=== PATIENT | male | born 1960 | race Hispanic/Latino ===

== ENCOUNTER 2020-11-02 06:36 | Day surgery (SDC) | payer BC ==
[2020-10-26 10:08] LABS: Absolute Lymphocytes (CBC) 1.5 K/uL (0.7-4.9); Basophils % 1.3 % (0-1.3); Hematocrit 43.2 % (39.6-49.0); Lymphocytes % 20.9 % (15.3-44.8); MPV 8.9 fL (7.6-11.3); RBC Red Blood Cell Count 5.03 M/uL (4.33-5.43)
[2020-10-26 10:13] LABS: Protime INR 0.97
[2020-10-26 10:39] LABS: Potassium 4.2 mmol/L (3.5-5.1)
--- NOTE | 2020-10-26 12:18 | RAD REPORT ---
EXAM DESCRIPTION: RAD - Chest Pa And Lat (2 Views) - 10/26/2020 10:03 am CLINICAL HISTORY: PRE OP, pending knee surgery COMPARISON: None TECHNIQUE: Frontal and lateral views of the chest were obtained. FINDINGS: The lungs are clear. Heart size is normal and central vasculature is within normal limit s. No pleural effusion or pneumothorax seen. No acute bony finding noted. No aortic abnormality. Hardware is in place from left shoulder surgical procedure. IMPRESSION: No acute cardiopulmonary process.
--- NOTE | 2020-10-26 13:37 | EKG ---
Test Date: 2020-10-26 Test Time: 10:03:47 Twister Hand: CG MEASUREMENT RESULTS: Intervals: Rate: 57 IN: 156 QRSD: 76 QT: 398 QTc: 387 [place]: P: 76 IN: 156 QRS: -14 T: 184 INTERPRETIVE STATEMENTS: Sinus bradycardia T wave abnormality, consider anterolateral ischemia Abnormal ECG No previous ECG available for comparison Electronically Signed On 10-26-20 13:36:51 TRACTOR DISTRIBUTOR by Romain Fagan
--- OUTSIDE RECORDS SUMMARY | 2020-11-02 06:38 | XMS REPORT ---
:1960 Author Organization [facility] Address [address] , [address] [place] [address] Care Team Providers Name Role Phone Suman Skinner Unavailable [phone] PROBLEMS Type Condition ICD9-CM OVC47-UT Onset Condition SNOMED Code Notes Code Code Dates Status Problem Primary M17.11 Active [id number] osteoarthritis of right knee ALLERGIES No Known Allergies ENCOUNTERS from 1960 to 2020-09-12 Encounter Location Date Provider Diagnosis [facility] [address] Aug, Suman Skinner Prep atellar bursitis [facility] [address] t knee M70.41 [place] [address] IMMUNIZATIONS Vaccine Route Administration Date Status Betamethasone Sodium Phosphate Unknown Nov 22, 2018 A dministered LIDOCAINE HCL 10MG/ML Unknown Nov 22, 2018 Administer ed SOCIAL HISTORY Tobacco Use: Social History Observation Description Date Details (start date - stop date) Never Smoker Sex Assigned At : Social History Observation Description Sex Assigned At Unknown Alcohol Screen Question Answer Notes Did you have a drink containing alcohol in Yes the past year? Points 2 Interpretation Negative How often did you have a drink containing Two to four times a month (2 points) alcohol in the past year? Tobacco Use/Smoking Question Answer Notes Are you a never smoker Additional Findings: Tobacco Non-User Current non-smoker REASON FOR REFERRAL No Information VITAL SIGNS No information MEDICATIONS Medication SIG (Take, Route, Frequency, Duration) Start Date En d Date Status Meloxicam 7.5 MG 1 tablet Orally Once a day for 30 day(s) Active Ibuprofen 800 MG 1 tablet po prn pain Orally Three times a Active day for 60 PROCEDURES No Information RESULTS No Results REASON FOR VISIT MRI right knee MEDICAL (GENERAL) HISTORY Type Description Date Surgical History LT HAND 80/90's Surgical History RT SHOULDER-metal 1987 Goals Section No Information Health Concerns No Information MEDICAL EQUIPMENT No Information MENTAL STATUS No Information FUNCTIONAL STATUS No Information ASSESSMENTS Encounter Date Diagnosis Notes Aug, Prepatellar bursitis of right knee (ICD- 10 - M70.41) PLAN OF TREATMENT Medication Medication Name Sig Start Date Stop Date Meloxicam 7.5 MG 1 tablet Orally Once a day for 30 day(s) Treatment Notes Test Name Order Date MRI Knee Right Wo Cont 2020-09-12 Insurance Providers Payer Name Payer Payer Insured Name Patient Coverage Covera ge End Address Phone Relationship to Start Date Sandeep e Insured [employer] [phone] [place] and Nikita [id number] [address] [place] [phone]
--- OUTSIDE RECORDS SUMMARY | 2020-11-02 06:39 | XMS REPORT ---
:1960 Author Organization [facility] Address [address] [place] [address] Care Team Providers Name Role Phone Suman Skinner Unavailable [phone] PROBLEMS Type Condition ICD9-CM VQT02-ES Onset Condition SNOMED Code Notes Code Code Dates Status Problem Primary M17.11 Active [id number] osteoarthritis of right knee ALLERGIES No Known Allergies ENCOUNTERS from 1960 to 2020-09-20 Encounter Location Date Provider Diagnosis [facility] [address] Aug, [place] [address] IMMUNIZATIONS Vaccine Route Administration Date Status Betamethasone [...] Information RESULTS No Results REASON FOR VISIT mri results MEDICAL (GENERAL) HISTORY Type Description Date Surgical History LT HAND 80/90's Surgical History RT SHOULDER-metal 1987 Goals Section No Information Health Concerns No Information MEDICAL EQUIPMENT No Information MENTAL STATUS No Information FUNCTIONAL STATUS No Information ASSESSMENTS No Information PLAN OF TREATMENT Medication Medication Name Sig Start Date Stop Date Meloxicam 7.5 MG 1 tablet Orally Once a day for 30 day(s) Next Appt Details Provider Name:Suman Skinner, 2020-09-24 0 3:15:00 PM, [address], [address], [place], [address], Insurance Providers Payer Name Payer Payer Insured Name Patient Coverage Covera ge End Address Phone Relationship to Start Date Sandeep e Insured [employer] [phone] [place] and Blue [id number] [address] [place] [phone]
--- OUTSIDE RECORDS SUMMARY | 2020-11-02 06:39 | XMS REPORT ---
:1960 Author Organization [facility] Address [address], [address] [place] [address] Care Team Providers Name Role Phone Suman Skinner Unavailable [phone] PROBLEMS Type Condition ICD9-CM FGR55-VZ Onset Condition SNOMED Code Notes Code Code Dates Status Problem Primary M17.11 Active [id number] osteoarthritis of right knee ALLERGIES No Known Allergies ENCOUNTERS from 1960 to 2020-11-01 Encounter Location Date Provider Diagnosis [facility] [address] Oct, Suman Skinner Comp naomi tear of medial [facility] [address] [place] meniscus of right knee [place], [place] as current inju , [address] initial encount er S83.231A ; Prim rubin osteoarthritis of right knee M17.11 and Right knee pain M25.5 61 IMMUNIZATIONS Vaccine Route Administration Date Status Betamethasone [...] REASON FOR REFERRAL No Information VITAL SIGNS Height 69.5 in Oct, Weight 246 lbs Oct, BMI 35.8 kg/m2 Oct, Blood pressure systolic 136 mm Hg Oct, Blood pressure diastolic 88 mm Hg Oct, MEDICATIONS Medication SIG (Take, Route, Notes Start Date End Date Status Frequency, Duration) Ibuprofen 800 MG 1 tablet po prn pain Orally Active Three times a day for 60 Zolpidem Tartrate Active ClomiPHENE Citrate Active Meloxicam 7.5 MG 1 tablet Orally Once a day Not-Taking for 30 day(s) Tramadol HCl 50 MG 1 tablet as needed Orally Sep, Active Q6H PRN PAIN PROCEDURES No Information RESULTS No Results REASON FOR VISIT F/U RT KNEE- DISCUSS SX FOR 11/02 MEDICAL (GENERAL) HISTORY Type Description Date Surgical History LT HAND 80/90's Surgical History RT SHOULDER-metal 1987 Goals Section No Information Health Concerns No Information MEDICAL EQUIPMENT No Information MENTAL STATUS No Information FUNCTIONAL STATUS No Information ASSESSMENTS Encounter Date Diagnosis Assessment Notes Treatment Notes Treatm ent Clinical Notes Oct, Complex tear of -patient has pain, medial meniscus of mechanical right knee as current symptoms and injury, initial difficulty with encounter (ICD-10 - ADLs S83.231A) -will proceed with right knee partial medial meniscectomy -risks and benefits discussed at length and he expressed understanding -will proceed with surgery next week Oct, Primary -continue with osteoarthritis of conservative right knee (ICD-10 - treatment M17.11) -will further evaluate with arthroscopy -discussed injections if continued pain after arthroscopy Oct, Right knee pain (ICD-10 - M25.561) PLAN OF TREATMENT Treatment Notes Assessment Notes Clinical Notes Complex tear of medial meniscus of -patient has pain, mechan ical right knee as current injury, symptoms and difficulty with initial encounter ADLs-will proceed with right knee partial medial meniscectomy-risks and benefits discussed at length and he expressed understanding-will proceed with surgery next week Primary osteoarthritis of right knee -continue with conserva tive treatment-will further evaluate with arthroscopy-discussed injections if continued pain after arthroscopy Next Appt Details postop Reason: Provider Name:Suman Bentonga, 2020-11-08 1 1:00:00 AM, [address], [place], [address], Insurance Providers Payer Name Payer Payer Insured Name Patient Coverage Covera ge End Address Phone Relationship to Start Date Sandeep e Insured [employer] [phone] [place] and Nikita [id number] [address] [facility] [phone]
--- OUTSIDE RECORDS SUMMARY | 2020-11-02 06:39 | XMS REPORT ---
:1960 Author Organization [facility] Address [address] [place] [address] Care Team Providers Name Role Phone Suman Skinner Unavailable [phone] PROBLEMS Type Condition ICD9-CM URZ15-PD Onset Condition SNOMED Code Notes Code Code Dates Status Problem Primary M17.11 Active [id number] osteoarthritis of right knee ALLERGIES No Known Allergies ENCOUNTERS from 1960 to 2020-10-02 Encounter Location Date Provider Diagnosis [facility] [address] Sep, [place] [address] IMMUNIZATIONS Vaccine Route Administration Date Status Betamethasone [...] information MEDICATIONS Medication SIG (Take, Route, Frequency, Start Date End Date Status Duration) Tramadol HCl 50 MG 1 tablet as needed Orally Q6H PRN Sep, Active PAIN Zolpidem Tartrate Active Meloxicam 7.5 MG 1 tablet Orally Once a day for 30 Not-Taking day(s) Ibuprofen 800 MG 1 tablet po prn pain Orally Three Active times a day for 60 ClomiPHENE Citrate Active PROCEDURES No Information RESULTS No Results REASON FOR VISIT surgery info MEDICAL (GENERAL) HISTORY Type Description Date Surgical History LT HAND 80/90's Surgical History RT SHOULDER-metal 1987 Goals Section No Information Health Concerns No Information MEDICAL EQUIPMENT No Information MENTAL STATUS No Information FUNCTIONAL STATUS No Information ASSESSMENTS No Information PLAN OF TREATMENT Medication Medication Name Sig Start Date Stop Date Tramadol HCl 50 MG 1 tablet as needed Orally Q6H PRN PAIN Sep Next Appt Details Provider Name:Suman Bentonga, 2020-10-25 0 3:30:00 PM, [address] [facility] [address], [address], [place], [address], Insurance Providers Payer Name Payer Payer Insured Name Patient Coverage Covera End Address Phone Relationship to Start Date Sandeep e Insured [employer] [phone] [place] and Blue [id number] [facility] [phone]
--- OUTSIDE RECORDS SUMMARY | 2020-11-02 06:39 | XMS REPORT | Continuity of Care Document ---
:1960 Author Organization [facility] Address [address] [place] [address] Care Team Providers Name Role Phone Unavailable Unavailable Unavailable Problems This patient has no known problems. Allergies, Adverse Reactions, Alerts This patient has no known allergies or adverse reactions. Medications Ordered Filled Start Stop Current Ordering Indication Dosage Frequency Signature Comments Components Source Medication Medication Date Date Medication? Clinician (SIG) Name Name Giovanni Davila Yes Suman (Schedule [facility]ionate [facility] Rx l Ref#:[id number] [facility] [id number]) ent Clinics IBU IBU Yes Suman (Prior [facility] Auth: Rx [facility] Ref#:[id number] [facility] [id number][facility] Clin[facility] Meloxicam Meloxicam Yes Suman [address] [facility] Estazolam Estazolam Yes Suman (Schedule [facility] IV Drug) [facility] ([facility] Auth: Rx l Ref#:[id number] [facility] [id number]) ent Clinics Sildenafil Sildenafil Yes Suman (Prior [facility] Citrate Citrate [facility] Auth: Rx [facility] Ref#:[id number] [facility] [id number][facility] Ibuprofen Ibuprofen Yes Suman [address] [facility] Skinner po prn [facility] Viagra Viagra Yes Suman (Prior [facility] Auth: Rx [facility] Ref#:[id number] [facility] [id number][facility] Amoxicillin Amoxicillin Yes Suman (Prior [facility] Auth: Rx [facility] Ref#:[id number] [facility] [id number][facility] Procedures This patient has no known procedures. Encounters Start End Encounter Admission Attending Care Care Encounter Source Date/Time Date/Time Type Type Clinicians Facility Department ID 2020-10-30 2020-10-30 Outpatient [facility] [id number] [facility] 2020-10-29 2020-10-29 Outpatient [facility] [id number] [facility] 2020-10-25 2020-10-25 Outpatient [facility] [id number] [facility] 2020-10-02 2020-10-02 Outpatient [facility] [id number] [facility] 2020-09-25 2020-09-25 Outpatient [facility] [id number] [facility] 2020-09-24 2020-09-24 Outpatient [facility] [id number] [facility] 2020-09-24 2020-09-24 Out[facility] [id number] [facility] 2020-09-18 2020-09-18 Outpatient [facility] [id number] [facility] 2020-09-10 2020-09-10 Outpatient [facility] [id number] [facility] 2020-01-31 2020-01-31 [facility] [id number] [facility] [address] [facility] Results This patient has no known results.
--- OUTSIDE RECORDS SUMMARY | 2020-11-02 06:39 | XMS REPORT ---
:1960 Author Organization [facility] Address [address] [place] [address] Care Team Providers Name Role Phone Suman Skinner Unavailable [phone] PROBLEMS Type Condition ICD9-CM [id number] Onset Condition SNOMED Code Notes Code Code Dates Status Problem Primary M17.11 Active [id number] osteoarthritis of right knee ALLERGIES No Known Allergies ENCOUNTERS from 1960 to 2020-09-24 Encounter Location Date Provider Diagnosis [facility] [address] Sep, [place] [address] IMMUNIZATIONS Vaccine Route Administration Date Status Betamethasone [...] Information RESULTS No Results REASON FOR VISIT No Information MEDICAL (GENERAL) HISTORY Type Description Date Surgical History LT HAND 80/90's Surgical History RT SHOULDER-metal 1987 Goals Section No Information Health Concerns No Information MEDICAL EQUIPMENT No Information MENTAL STATUS No Information FUNCTIONAL STATUS No Information ASSESSMENTS No Information PLAN OF TREATMENT Medication Medication Name Sig Start Date Stop Date Tramadol HCl 50 MG 1 tablet as needed Orally Q6H PRN PAIN Sep Insurance Providers Payer Name Payer Payer Insured Name Patient Coverage Covera ge End Address Phone Relationship to Start Date Sandeep e Insured [employer] [phone] [place] and Blue [id number] [address] [place] [phone]
--- OUTSIDE RECORDS SUMMARY | 2020-11-02 06:39 | XMS REPORT ---
:[address] [facility] [place] Address [address] , [address] [place] [address] Care Team Providers Name Role Phone Suman Skinner Unavailable [phone] PROBLEMS Type Condition ICD9-CM OML46-JK Onset Condition SNOMED Code Notes Code Code Dates Status Problem Primary M17.11 Active [id number] osteoarthritis of right knee ALLERGIES No Known Allergies ENCOUNTERS from 1960 to 2020-09-27 Encounter Location Date Provider Diagnosis [facility] [address] Sep, Suman Skinner Comp naomi tear of medial [facility] [address] [place] meniscus of right knee [place], [place] as current inju , [address] initial encount er S83.231A and Pr imary osteoarthritis of right knee M17.11 IMMUNIZATIONS Vaccine Route Administration Date Status Betamethasone [...] No Information VITAL SIGNS Height 69.5 in Sep, Weight 246.4 lbs Sep, Temperature 97.5 degrees Fahrenheit Sep, BMI 35.86 kg/m2 Sep, Blood pressure systolic 135 mm Hg Sep, Blood pressure diastolic 78 mm Hg Sep, MEDICATIONS Medication SIG (Take, Route, Frequency, Start [...] RESULTS No Results REASON FOR VISIT F/U MRI RESULTS: RT KNEE PAIN MEDICAL (GENERAL) HISTORY Type Description Date Surgical History LT HAND 80/90's Surgical History RT SHOULDER-metal 1987 Goals Section No Information Health Concerns No Information MEDICAL EQUIPMENT No Information MENTAL STATUS No Information FUNCTIONAL STATUS No Information ASSESSMENTS Encounter Date Diagnosis Notes Sep, Primary osteoarthritis of right knee (IC D-10 - M17.11) Sep, Complex tear of medial meniscus of right knee as current injury, initial encounter (ICD-10 - S83.231A) PLAN OF TREATMENT Medication Medication Name Sig Start Date Stop Date Tramadol HCl 50 MG 1 tablet as needed Orally Q6H PRN PAIN Sep Treatment Notes Assessment Notes Clinical Notes Complex tear of medial meniscus of -patient has pain, mechan ical right knee as current injury, symptoms and difficulty with initial encounter ADLs-will proceed with right knee partial medial meniscectomy-risks and benefits discussed at length and he expressed understanding-will obtain medical clearance and schedule surgery within the month Primary osteoarthritis of right knee -continue with conserva tive treatment-will further evaluate with arthroscopy-discussed injections if continued pain after arthroscopy Next Appt Details f/u 1 week postop Reason: Insurance Providers Payer Name Payer Payer Insured Name Patient Coverage Covera ge End Address Phone Relationship to Start Date Sandeep e Insured [employer] [phone] [place] and Nikita [id number] [address] [place] [phone]
--- OUTSIDE RECORDS SUMMARY | 2020-11-02 06:39 | XMS REPORT ---
:[address] [facility] Address [address] [place] [address] Care Team Providers Name Role Phone Suman Skinner Unavailable [phone] PROBLEMS Type Condition ICD9-CM WFI38-KE Onset Condition SNOMED Code Notes Code Code Dates Status Problem Primary M17.11 Active [id number] osteoarthritis of right knee ALLERGIES No Known Allergies ENCOUNTERS from 1960 to 2020-09-25 Encounter Location Date Provider Diagnosis [facility] [address] Sep, [place] [address] IMMUNIZATIONS Vaccine Route Administration Date Status Betamethasone [...] Information RESULTS No Results REASON FOR VISIT work note email MEDICAL (GENERAL) HISTORY Type Description Date Surgical [...] [phone] [place] and Nikita [id number] [address] [place] [phone]
--- OUTSIDE RECORDS SUMMARY | 2020-11-02 06:39 | XMS REPORT ---
:1960 Author Organization [facility] Address [address] [place] [address] Care Team Providers Name Role Phone Suman Skinner Unavailable [phone] PROBLEMS Type Condition ICD9-CM NCO84-RQ Onset Condition SNOMED Code Notes Code Code Dates Status Problem Primary M17.11 Active [id number] osteoarthritis of right knee ALLERGIES No Known Allergies ENCOUNTERS from 1960 to 2020-10-30 Encounter Location Date Provider Diagnosis [facility] [address] Oct, [facility] [place] [address] IMMUNIZATIONS Vaccine Route Administration Date Status Betamethasone [...] No information MEDICATIONS Medication SIG (Take, Route, Notes Start [...] Information RESULTS No Results REASON FOR VISIT Surgery cost MEDICAL (GENERAL) HISTORY Type Description Date Surgical History LT HAND 80/90's Surgical History RT SHOULDER-metal 1987 Goals Section No Information Health Concerns No Information MEDICAL EQUIPMENT No Information MENTAL STATUS No Information FUNCTIONAL STATUS No Information ASSESSMENTS No Information PLAN OF TREATMENT Next Appt Details Provider Name:Suman Skinner, 2020-11-08 1 1:00:00 AM, [address], [place], [address], Insurance Providers Payer Name Payer Payer Insured Name Patient Coverage Covera ge End Address Phone Relationship to Start Date Sandeep e Insured [employer] [phone] [place] and Blue [id number] [address] [place] [phone]
--- OUTSIDE RECORDS SUMMARY | 2020-11-02 06:39 | XMS REPORT ---
:1960 Author Organization [facility] Address [address] [place] [address] Care Team Providers Name Role Phone Suman Skinner Unavailable [phone] PROBLEMS Type Condition ICD9-CM BQT10-DM Onset Condition SNOMED Code Notes Code Code Dates Status Problem Primary M17.11 Active [id number] osteoarthritis of right knee ALLERGIES No Known Allergies ENCOUNTERS from 1960 to 2020-10-29 Encounter Location Date Provider Diagnosis [facility] [address] Oct, [place] [address] IMMUNIZATIONS Vaccine Route Administration Date Status Betamethasone [...] 2020-11-08 1 1:00:00 AM, [address], [place], [address], Insurance Providers Payer Name Payer Payer Insured Name Patient Coverage Covera ge End Address Phone Relationship to Start Date Sandeep e Insured [employer] [phone] [place] and Blue [id number] [address] [place] [phone]
[2020-11-02] MEDS ORDERED: Ringers Lactate 1,000 ML IV ONE (07:04)
[2020-11-02] MEDS ORDERED: CEFAZOLIN/SWI 1gm 1 GM/10 ML SYR ONE (07:04)
[2020-11-02] MEDS ORDERED: propofoL 200 MG/20 ML VIAL IV ONE (07:22)
[2020-11-02] MEDS ORDERED: LIDOCAINE 2% MPF 5 ML VIAL ONE (07:22)
[2020-11-02] MEDS ORDERED: FENTANYL CITR 100 MCG/2 ML ONE (07:22)
[2020-11-02] MEDS ORDERED: MIDAZOLAM HCL 2 MG/2 ML INJ ONE (07:22)
[2020-11-02] MEDS ORDERED: KETOROLAC 30 MG/ML INJ ONE (08:08)
[2020-11-02] MEDS ORDERED: dexAMETHasone 10 MG/ML VIAL ONE (08:08)
[2020-11-02] MEDS ORDERED: ONDANSETRON 4 MG/2 ML VIAL ONE (08:08)
[2020-11-02] MEDS ORDERED: BUPIVACAINE 0.25% PF 30 ML VIAL ONE (08:43)
--- NOTE | 2020-11-02 08:48 | P.BOP ---
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
[2020-11-02 09:56] VITALS: BP 128/73; TEMP 96.3; O2SAT 98
[2020-11-02] MEDS ORDERED: HYDROCODONE/APAP 7.5/325 MG TAB ONE (10:01)
--- NOTE | 2020-11-04 23:49 | OP ---
Date of Procedure: 11/02/2020 Surgeon: Suman Skinner MD Preoperative Diagnosis: Right knee medial meniscus tear. Postoperative Diagnoses: 1.Right knee medial meniscus tear. 2.Right knee lateral meniscus tear. Procedure Performed: Right knee arthroscopic partial medial and lateral meniscectomy. Anesthesia: General LMA. Fluids: Per Anesthesia record. Estimated Blood Loss: Less than 5 cc. Complications: None. Implants: None. Tourniquet Time: 33 minutes at 300 mmHg. Indication For Procedure: Glen is a 60-year-old male presented to my clinic with signs, symptoms, an d MRI findings consistent with a right knee medial meniscus tear. I discussed with the patient at [facility] risks and benefits associated with operative and nonoperative treatments. He expressed understa nding and elected to proceed with operative treatment. Description Of Procedure: After informed consent was obtained, the patient was identified in the pre operative holding area. The right lower extremity was marked. The patient was then taken back to [facility] operating room, transferred to the operating table in supine fashion, placed under general LMA anes thesia. The right lower extremity was then prepped and draped in usual sterile fashion. A time-out was initiated. The correct patient and procedure were confirmed and identified. The patient did rec eive his preoperative prophylactic antibiotics. Standard anteromedial and anterolateral portals were created after the leg was exsanguinated using a tourniquet and the tourniquet was inflated to 300 mm Hg. Diagnostic arthroscopy was performed. Arthroscope was brought in, the patellofemoral joint was noted to have just a mild chondromalacic changes noted on the undersurface of the patella. There wer e no loose bodies found within the patella along the medial lateral gutters. The arthroscope was the n brought in the medial compartment. The patient was noted to have some mild chondromalacic changes in the medial tibial plateau and medial femoral condyle. The patient was noted to have a complex tea r of the medial meniscus. A partial medial meniscectomy was performed using arthroscopic shaver and meniscal biters to smooth meniscal borders. The arthroscope was then brought into the intercondylar notch. The patient was noted to have an intact ACL and PCL. The arthroscope was then brought in the lateral compartment. The patient was noted have some fraying of the lateral meniscal body consisten t with a small lateral meniscus tear. Partial lateral meniscectomy was performed using an arthroscop ic shaver and meniscal biters with stable meniscal borders. The arthroscopic instruments were then r emoved without complications. Wounds were then irrigated thoroughly with normal saline. Portals wer e approximated using a 3-0 Vicryl. Sterile dressings were applied. Tourniquet was let down. The pa tient was awakened and transferred to PACU in stable condition. Postoperative Plan: The patient will be weightbearing as tolerated on the right lower extremity. He will follow up in my clinic in 1 week for wound check. CV/MODL Voice ID: [id number] Report ID: [id number]
== END 2020-11-02 10:59 | disposition home or self-care (01) ==
LOC: OR 06:36
PROVIDERS: ATTEND Orthopaedic Surgery Sports Medicine
PROC: 0SBC4ZZ Excision of Right Knee Joint, Percutaneous Endoscopic Approach (ICD-10-PCS; 2020-11-02)
PROC: 0SBC4ZZ Excision of Right Knee Joint, Percutaneous Endoscopic Approach (ICD-10-PCS; principal; 2020-11-02 07:30)
DX: S83.231A Complex tear of medial meniscus, current injury, right knee, initial encounter (principal); S83.281A Other tear of lateral meniscus, current injury, right knee, initial encounter; M17.11 Unilateral primary osteoarthritis, right knee; Z20.828 Contact with and (suspected) exposure to other viral communicable diseases
CPT/HCPCS: 29880; 93005; 85025; 80048; 36415; 85610; 85730; 71046; U0002; J2704; J2250; J3010; J1100; J0690; J7120; J2405